=== PATIENT | female | born 1970 | race Caucasian/White ===

== ENCOUNTER 2017-06-08 09:32 | Emergency (ER) | payer BC ==
--- NOTE | 2017-06-08 10:36 | EDM.PDOC ---
ED HPI GENERAL MEDICAL PROBLEM - General Chief Complaint: Cardiovascular Problem Stated Complaint: HEART RACING FLUSHED Time Seen by Provider: 06/08/17 10:20 Source of Information: Reports: Patient, RN Notes Reviewed History Limitations: Reports: No Limitations - History of Present Illness INITIAL COMMENTS - FREE TEXT/NARRATIVE: The patient states that she developed symptoms of sudden onset heart racing, dizziness, flushing, and tingling of the right side of her face, around 10:00 this morning. The heart racing symptoms resolved around the time she got to the ED, with a total duration of about 20 minutes. The patient states that she still has the dizziness sensation, and the flushing sensation is limited to the back of her head. She still has tingling to the right side of her face. The patient states that she has a history of factor V Leiden, and was previously treated with Coumadin, but self discontinued it about 5 years ago because she did not like how it made her skin thin. The patient does not have a PCP. Headache Pain Score (Numeric/FACES): 5 - Related Data Allergies Allergy/AdvReac Type Severity Reaction Status Date / Time lidocaine Allergy Airway Verified 06/08/17 09:38 Tightness Penicillins Allergy Other Verified 06/08/17 09:38 procaine [From Novocain] Allergy Airway Verified 06/08/17 09:38 Tightness Home Meds: Home Meds . 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: Hematologic History: Reports: Other (See Below) (Factor V Leiden) Immunologic History: Reports: SLE - Past Surgical History HEENT Surgical History: Reports: Oral Surgery ([place] teeth extraction) Female Surgical History: Reports: Tubal Ligation Neurological Surgical History: Reports: Intracranial (Meningioma excised from right brain 2001) Dermatological Surgical History: Reports: Other (See Below) (Lipomas excised off back) Social & Family History - Tobacco Use Smoking Status *Q: Current Every Day Smoker Years of Tobacco use: 36 Packs/Tins Daily: 1 - Caffeine Use Caffeine Use: Reports: Coffee - Alcohol Use Alcohol Use History: No - Recreational Drug Use Recreational Drug Use: No - Living Situation & Occupation Living situation: Reports: Single, Alone 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[employer]) ED ROS GENERAL - Review of Systems Review Of Systems: See Below Constitutional: Reports: No Symptoms HEENT: Reports: No Symptoms Respiratory: Reports: No Symptoms Cardiovascular: Reports: No Symptoms Endocrine: Reports: No Symptoms GI/Abdominal: Reports: No Symptoms : Reports: No Symptoms Musculoskeletal: Reports: No Symptoms Skin: Reports: No Symptoms Neurological: Reports: No Symptoms Psychiatric: Reports: No Symptoms Hematologic/Lymphatic: Reports: No Symptoms Immunologic: Reports: No Symptoms ED EXAM, GENERAL - Physical Exam Exam: See Below Exam Limited By: No Limitations General Appearance: Alert, WD/WN, No Apparent Distress Eye Exam: Bilateral Eye: EOMI, Normal Inspection, PERRL Ears: Normal External Exam, Hearing Grossly Normal Nose: Normal Inspection, No Blood Throat/Mouth: Normal Inspection, Normal Lips, Normal Voice, No Airway Compromise Head: Atraumatic, Normocephalic Neck: Normal Inspection, Full Range of Motion Respiratory/Chest: No Respiratory Distress, Lungs Clear, Normal Breath Sounds, No Accessory Muscle Use Cardiovascular: Normal Peripheral Pulses, Regular Rate, Rhythm, No Gallop, No JVD, No Murmur, No Rub Peripheral Pulses: 4+: Radial (L), Radial (R) GI/Abdominal: Normal Bowel Sounds, Soft, Non-Tender, No Organomegaly, No Distention, No Abnormal Bruit, No Mass (Female) Exam: Deferred Rectal (Female) Exam: Deferred Back Exam: Normal Inspection, Full Range of Motion, NT Extremities: Normal Inspection, Normal Range of Motion, No Pedal Edema, Normal Capillary Refill Neurological: Alert, Oriented, Normal Cognition, No Motor/Sensory Deficits, Other (The patient reports decreased sensation to palpation of the right side of her face in the V2 and V 3 distribution) Psychiatric: Normal Affect Skin Exam: Warm, Dry, Intact, Normal Color, No Rash Lymphatic: No Adenopathy EKG INTERPRETATION EKG Date: 06/08/17 Time: 10:27 Rhythm: NSR Rate (Beats/Min): 72 [place]: Normal P-Wave: Present QRS: Normal ST-T: Normal QT: Normal Comparison: NA - No Prior EKG Course - Vital Signs Last Recorded V/S: Last Vital Signs Temp 36.8 C 06/08/17 09:40 Pulse 70 06/08/17 14:08 Resp 13 06/08/17 14:08 BP 118/70 06/08/17 14:08 Pulse Ox 99 06/08/17 14:08 Orthostatic Blood Pressure [ 120/89 Standing] Orthostatic Blood Pressure [ 111/87 Sitting] Orthostatic Blood Pressure [ 113/74 Supine] - Orders/Labs/Meds Orders: Active Orders 24 hr Category Date Time Status EKG 12 Lead [EKG Documentation Completion] [RC] URGENT Care 06/08/17 10:20 Active Orthostatic Vital Signs [RC] STAT Care 06/08/17 10:37 Active Ang Chest [CT] Stat Exams 06/08/17 11:51 Taken Labs: Laboratory Tests 06/08/17 06/08/17 06/08/17 Range/Units 10:36 10:50 10:50 WBC (3.98-10.04) K/mm3 RBC (3.98-5.22) M/mm3 Hgb (11.2-15.7) gm/L Hct (34.1-44.9) % MCV (79.4-94.8) fl MCH (25.6-32.2) pg MCHC (32.2-35.5) g/dl RDW Std Deviation (36.4-46.3) fL Plt Count (182-369) K/mm3 MPV (9.4-12.3) fl Neutrophils % (Manual) (40-60) % Band Neutrophils % (0-10) % Lymphocytes % (Manual) (20-40) % Atypical Lymphs % % Monocytes % (Manual) (2-10) % Eosinophils % (Manual) (0.7-5.8) % Basophils % (Manual) (0.1-1.2) Platelet Estimate RBC Morph Comment ESR (0-20) mm/hr PT (8.0-13.0) SECONDS INR APTT (22-36) SECONDS D-Dimer, Quantitative (0.19-0.59) mg/L Puncture Site Rt radial ABG pH 7.38 (7.35-7.45) ABG pCO2 44.3 (35.0-45.0) mmHg ABG pO2 65.0 L (80.0-100.0) mmHg ABG HCO3 25.7 (22.0-26.0) meq/L ABG O2 Saturation 94.4 L (96.0-97.0) % ABG Base Excess 0.9 (-2-2.0) Efrain Test Positive O2 Delivery Device Room air Sodium (136-145) mEq/L Potassium (3.5-5.1) mEq/L Chloride (98-107) mEq/L Carbon Dioxide (21-32) mEq/L Anion Gap (5-15) BUN (7-18) mg/dL Creatinine (0.55-1.02) mg/dL Est Cr Clr Drug Dosing mL/min Estimated GFR (MDRD) (>60) mL/min BUN/Creatinine Ratio (14-18) Glucose (74-106) mg/dL Calcium (8.5-10.1) mg/dL Magnesium (1.8-2.4) mg/dl Total Bilirubin (0.2-1.0) mg/dL AST (15-37) U/L ALT (14-59) U/L Alkaline Phosphatase (46-116) U/L Troponin I (0.00-0.056) ng/mL C-Reactive Protein (<1.0) mg/dL Total Protein (6.4-8.2) g/dl Albumin (3.4-5.0) g/dl Globulin gm/dL Albumin/Globulin Ratio (1-2) TSH 3rd Generation (0.358-3.74) uIU/mL Urine Color Yellow (Yellow) Urine Appearance Clear (Clear) Urine pH 6.5 (5.0-8.0) Ur Specific [employer] 1.015 (1.005-1.030) Urine Protein Negative (Negative) Urine Glucose (UA) Negative (Negative) Urine Ketones Negative (Negative) Urine Occult Blood Negative (Negative) Urine Nitrite Negative (Negative) Urine Bilirubin Negative (Negative) Urine Urobilinogen 0.2 (0.2-1.0) Ur Leukocyte Esterase Negative (Negative) Urine RBC 0-5 (0-5) /hpf Urine WBC 0-5 (0-5) /hpf Ur Epithelial Cells 0-5 (0-5) /hpf Urine Bacteria Few (FEW) /hpf Urine Mucus Few (FEW) /hpf Urine Opiates Screen Negative (NEGATIVE) Ur Buprenorphine Scrn Negative (NEGATIVE) Ur Oxycodone Screen Negative (NEGATIVE) Urine Methadone Screen Negative (NEGATIVE) Ur Propoxyphene Screen Negative (NEGATIVE) Ur Barbiturates Screen Negative (NEGATIVE) Ur Tricyclics Screen Negative (NEGATIVE) Ur Phencyclidine Scrn Negative (NEGATIVE) Ur Amphetamine Screen Negative (NEGATIVE) U Methamphetamines Scrn Negative (NEGATIVE) U Benzodiazepines Scrn Negative (NEGATIVE) U Cocaine Metab Screen Negative (NEGATIVE) U Marijuana (THC) Screen Negative (NEGATIVE) Ethyl Alcohol (0.00) gm% 06/08/17 06/08/17 06/08/17 Range/Units 11:00 11:00 11:00 WBC 5.91 (3.98-10.04) K/mm3 RBC 4.30 (3.98-5.22) M/mm3 Hgb 13.7 (11.2-15.7) gm/L Hct 42.5 (34.1-44.9) % MCV 98.8 H (79.4-94.8) fl MCH 31.9 (25.6-32.2) pg MCHC 32.2 (32.2-35.5) g/dl RDW Std Deviation 44.0 (36.4-46.3) fL Plt Count 221 (182-369) K/mm3 MPV 9.6 (9.4-12.3) fl Neutrophils % (Manual) 48 (40-60) % Band Neutrophils % 1 (0-10) % Lymphocytes % (Manual) 38 (20-40) % Atypical Lymphs % 0 % Monocytes % (Manual) 7 (2-10) % Eosinophils % (Manual) 7 H (0.7-5.8) % Basophils % (Manual) 0 L (0.1-1.2) Platelet Estimate Adequate RBC Morph Comment Not Reportable ESR (0-20) mm/hr PT (8.0-13.0) SECONDS INR APTT (22-36) SECONDS D-Dimer, Quantitative 1.77 H (0.19-0.59) mg/L Puncture Site ABG pH (7.35-7.45) ABG pCO2 (35.0-45.0) mmHg ABG pO2 (80.0-100.0) mmHg ABG HCO3 (22.0-26.0) meq/L ABG O2 Saturation (96.0-97.0) % ABG Base Excess (-2-2.0) Efrain Test O2 Delivery Device Sodium 141 (136-145) mEq/L Potassium 4.0 (3.5-5.1) mEq/L Chloride 105 (98-107) mEq/L Carbon Dioxide 30 (21-32) mEq/L Anion Gap 10.0 (5-15) BUN 11 (7-18) mg/dL Creatinine 0.8 (0.55-1.02) mg/dL Est Cr Clr Drug Dosing 70.36 mL/min Estimated GFR (MDRD) > 60 (>60) mL/min BUN/Creatinine Ratio 13.8 L (14-18) Glucose 91 (74-106) mg/dL Calcium 9.2 (8.5-10.1) mg/dL Magnesium 2.1 (1.8-2.4) mg/dl Total Bilirubin 0.6 (0.2-1.0) mg/dL AST 17 (15-37) U/L ALT 20 (14-59) U/L Alkaline Phosphatase 131 H (46-116) U/L Troponin I < 0.017 (0.00-0.056) ng/mL C-Reactive Protein 0.8 (<1.0) mg/dL Total Protein 7.4 (6.4-8.2) g/dl Albumin 4.0 (3.4-5.0) g/dl Globulin 3.4 gm/dL Albumin/Globulin Ratio 1.2 (1-2) TSH 3rd Generation 2.185 (0.358-3.74) uIU/mL Urine Color (Yellow) Urine Appearance (Clear) Urine pH (5.0-8.0) Ur Specific [employer] (1.005-1.030) Urine Protein (Negative) Urine Glucose (UA) (Negative) Urine Ketones (Negative) Urine Occult Blood (Negative) Urine Nitrite (Negative) Urine Bilirubin (Negative) Urine Urobilinogen (0.2-1.0) Ur Leukocyte Esterase (Negative) Urine RBC (0-5) /hpf Urine WBC (0-5) /hpf Ur Epithelial Cells (0-5) /hpf Urine Bacteria (FEW) /hpf Urine Mucus (FEW) /hpf Urine Opiates Screen (NEGATIVE) Ur Buprenorphine Scrn (NEGATIVE) Ur Oxycodone Screen (NEGATIVE) Urine Methadone Screen (NEGATIVE) Ur Propoxyphene Screen (NEGATIVE) Ur Barbiturates Screen (NEGATIVE) Ur Tricyclics Screen (NEGATIVE) Ur Phencyclidine Scrn (NEGATIVE) Ur Amphetamine Screen (NEGATIVE) U Methamphetamines Scrn (NEGATIVE) U Benzodiazepines Scrn (NEGATIVE) U Cocaine Metab Screen (NEGATIVE) U Marijuana (THC) Screen (NEGATIVE) Ethyl Alcohol 0.00 (0.00) gm% 06/08/17 06/08/17 Range/Units 11:00 11:00 WBC (3.98-10.04) K/mm3 RBC (3.98-5.22) M/mm3 Hgb (11.2-15.7) gm/L Hct (34.1-44.9) % MCV (79.4-94.8) fl MCH (25.6-32.2) pg MCHC (32.2-35.5) g/dl RDW Std Deviation (36.4-46.3) fL Plt Count (182-369) K/mm3 MPV (9.4-12.3) fl Neutrophils % (Manual) (40-60) % Band Neutrophils % (0-10) % Lymphocytes % (Manual) (20-40) % Atypical Lymphs % % Monocytes % (Manual) (2-10) % Eosinophils % (Manual) (0.7-5.8) % Basophils % (Manual) (0.1-1.2) Platelet Estimate RBC Morph Comment ESR 35 H (0-20) mm/hr PT 10.2 (8.0-13.0) SECONDS INR 0.94 APTT 28 (22-36) SECONDS D-Dimer, Quantitative (0.19-0.59) mg/L Puncture Site ABG pH (7.35-7.45) ABG pCO2 (35.0-45.0) mmHg ABG pO2 (80.0-100.0) mmHg ABG HCO3 (22.0-26.0) meq/L ABG O2 Saturation (96.0-97.0) % ABG Base Excess (-2-2.0) Efrain Test O2 Delivery Device Sodium (136-145) mEq/L Potassium (3.5-5.1) mEq/L Chloride (98-107) mEq/L Carbon Dioxide (21-32) mEq/L Anion Gap (5-15) BUN (7-18) mg/dL Creatinine (0.55-1.02) mg/dL Est Cr Clr Drug Dosing mL/min Estimated GFR (MDRD) (>60) mL/min BUN/Creatinine Ratio (14-18) Glucose (74-106) mg/dL Calcium (8.5-10.1) mg/dL Magnesium (1.8-2.4) mg/dl Total Bilirubin (0.2-1.0) mg/dL AST (15-37) U/L ALT (14-59) U/L Alkaline Phosphatase (46-116) U/L Troponin I (0.00-0.056) ng/mL C-Reactive Protein (<1.0) mg/dL Total Protein (6.4-8.2) g/dl Albumin (3.4-5.0) g/dl Globulin gm/dL Albumin/Globulin Ratio (1-2) TSH 3rd Generation (0.358-3.74) uIU/mL Urine Color (Yellow) Urine Appearance (Clear) Urine pH (5.0-8.0) Ur Specific [employer] (1.005-1.030) Urine Protein (Negative) Urine Glucose (UA) (Negative) Urine Ketones (Negative) Urine Occult Blood (Negative) Urine Nitrite (Negative) Urine Bilirubin (Negative) Urine Urobilinogen (0.2-1.0) Ur Leukocyte Esterase (Negative) Urine RBC (0-5) /hpf Urine WBC (0-5) /hpf Ur Epithelial Cells (0-5) /hpf Urine Bacteria (FEW) /hpf Urine Mucus (FEW) /hpf Urine Opiates Screen (NEGATIVE) Ur Buprenorphine Scrn (NEGATIVE) Ur Oxycodone Screen (NEGATIVE) Urine Methadone Screen (NEGATIVE) Ur Propoxyphene Screen (NEGATIVE) Ur Barbiturates Screen (NEGATIVE) Ur Tricyclics Screen (NEGATIVE) Ur Phencyclidine Scrn (NEGATIVE) Ur Amphetamine Screen (NEGATIVE) U Methamphetamines Scrn (NEGATIVE) U Benzodiazepines Scrn (NEGATIVE) U Cocaine Metab Screen (NEGATIVE) U Marijuana (THC) Screen (NEGATIVE) Ethyl Alcohol (0.00) gm% Meds: Medications Discontinued Medications Generic Name Dose Route Start Last Admin Trade Name Freq PRN Reason Stop Dose Admin Sodium Chloride 1,000 mls @ 150 mls/hr 06/08/17 12:00 06/08/17 12:48 Normal Saline IV 150 mls/hr ASDIRECTED ELIF Administration Sodium Chloride 100 mls @ 60 mls/hr 06/08/17 12:00 06/08/17 12:15 Normal Saline IV 60 mls/hr ASDIRECTED ELIF Administration Ibuprofen 600 mg 06/08/17 12:38 06/08/17 12:48 Motrin PO 06/08/17 12:39 600 mg ONETIME ONE Administration Iopamidol 100 ml 06/08/17 11:57 06/08/17 12:14 Isovue-370 (76%) IVPUSH 06/08/17 11:58 100 ml ONETIME ONE Administration Sodium Chloride 10 ml 06/08/17 11:57 06/08/17 12:15 Saline Flush FLUSH 06/08/17 11:58 10 ml ONETIME ONE Administration - Re-Assessments/Exams Free Text/Narrative Re-Assessment/Exam: 06/08/17 11:23 CT of the head without contrast is read by Dr. Torres as: 1. Right occipital craniotomy with evidence of adjacent encephalomalacia within the right cerebellar hemisphere. 2. No acute intracranial abnormality is identified. 06/08/17 11:52 The patient's D-dimer has returned substantially elevated at 1.77. I have ordered a CT angiogram to evaluate for a pulmonary embolus, along with normal saline IV fluid. 06/08/17 11:53 Two-view chest radiograph appears to be grossly normal. Cardiac silhouette is within normal limits. No pulmonary vascular congestion. No pleural effusions. No focal infiltrate. No pneumothorax. Formal read per the Radiologist pending. 06/08/17 13:01 The patient is not orthostatic. 06/08/17 13:51 CT angiogram of the chest is read by virtual radiology as: No pulmonary embolus. No acute abnormality is noted in the chest. Left adrenal nodule. 06/08/17 14:00 Test results discussed with the patient. Today's workup is unremarkable, and does not explain the cause of her palpitations, dizziness, flushing, or tingling on the right side of her face. That being said, she states that she is now feeling much better, and her symptoms have essentially resolved. Departure - Departure Time of Disposition: 14:01 Disposition: Home, Self-Care 01 Condition: Good Clinical Impression: Palpitations, Numbness and tingling of right face, Flushing, Lightheadedness Instructions: Palpitations, [id number] Referrals: PCP,None [Primary Care Provider] - Luly Martinez [Physician] - Forms: ED Department Discharge Additional Instructions: You were seen in the emergency room for sudden onset heart racing, lightheadedness, flushing, and tingling of the right side of your face. Workup in the ER included blood work, an ABG, a urinalysis, a urine drug screen , an ECG, a chest x-ray, a CT scan of your head, a CT angiogram of your chest, and positional blood pressure checks. Your entire workup was unremarkable. You do not have a blood clot in your chest. You do not have pneumonia. Your heart rate was found to be normal while here in the ER. You have not suffered a heart attack. It does not appear that you were hyperventilating. You are not intravascularly depleted. No evidence of vasculitis. Your thyroid level is normal. You have not had a stroke. Because your workup was normal, we are not able to say why you had the symptoms that you did. We recommend you follow-up with Dr. Martinez in the clinic at the next available appointment. You should be anticoagulated for your factor V Leiden condition. This is especially important as a smoker. If any other problems, please do not hesitate to return to the ER. - My Orders Last 24 Hours: My Active Orders 06/08/17 10:20 EKG 12 Lead [EKG Documentation Completion] [RC] URGENT 06/08/17 10:37 Orthostatic Vital Signs [RC] STAT 06/08/17 11:51 Ang Chest [CT] Stat - Assessment/Plan Last 24 Hours: My Active Orders 06/08/17 10:20 EKG 12 Lead [EKG Documentation Completion] [RC] URGENT 06/08/17 10:37 Orthostatic Vital Signs [RC] STAT 06/08/17 11:51 Ang Chest [CT] Stat
--- NOTE | 2017-06-08 11:10 | CT ---
Head CT Technique: Multiple axial sections through the brain were obtained. Intravenous contrast was not utilized. Comparison: No previous intracranial imaging. Findings: Ventricles along with basal cistern and sulci over convexities are within normal limits for the patient's age. Ventricular size is slightly asymmetric which is felt to be incidental. There is an area of encephalomalacia being seen within the posterior right cerebellar hemisphere with overlying craniotomy defect being noted. No other abnormal parenchymal densities are seen. No evidence of intracranial hemorrhage. No midline shift or mass effect is seen. Bone window settings were reviewed which shows the visualized sinuses to appear clear. No acute calvarial abnormality is seen. Impression: 1. Right occipital craniotomy with evidence of adjacent encephalomalacia within the right cerebellar hemisphere. 2. No acute intracranial abnormality is identified. Diagnostic code #2
[2017-06-08] MEDS ORDERED: Sodium Chloride 0.9% 10 ML Syringe FLUSH ONE (11:57)
[2017-06-08] MEDS ORDERED: Iopamidol 755 Mg/ML 100 ML Bottle IVPUSH ONE (11:57)
[2017-06-08] MEDS ORDERED: Sodium Chloride 0.9% 100 ML IV SCH (12:00)
[2017-06-08] MEDS ORDERED: Sodium Chloride 0.9% 1,000 ML IV SCH (12:00)
--- NOTE | 2017-06-08 12:07 | CR ---
Chest: Two views of the chest were obtained. Comparison: No previous study. Heart size and mediastinum are normal. Lungs are clear. Bony structures are unremarkable for the patient's age. Impression: 1. Nothing acute is appreciated on two-view chest x-ray. Diagnostic code #1
[2017-06-08] MEDS ORDERED: Ibuprofen 600 MG Tab PO ONE (12:38)
[2017-06-08 14:09] VITALS: BP 118/70
--- NOTE | 2017-06-09 06:55 | CT ---
CT chest Technique: Multiple axial sections through the chest were obtained. Intravenous contrast was utilized. Study has been performed as a pulmonary angiogram protocol. Comparison: Prior chest x-ray performed earlier on the same day, no previous chest CT is available. Findings: Pulmonary arteries are well-opacified. No filling defects are seen to indicate pulmonary embolism. Mediastinum and hilar regions show no adenopathy or mass. Both axillary regions show no adenopathy. No pericardial thickening is seen. Left adrenal nodule is identified measuring around 2.1 cm. This is not completely included on this exam. This does not have Hounsfield unit measurements to confirm a simple adenoma. Mild emphysematous change is seen within the right upper lung. Dependent atelectasis noted posteriorly within both lung bases as an incidental note. No pleural effusions are seen. Impression: 1. No findings of pulmonary embolism. 2. Nodule within the left adrenal gland. Repeat noncontrast CT recommended in 6 months to confirm stability. 3. Mild emphysematous change within the right upper lung. Diagnostic code #9 Agree with preliminary report issued by [facility] ([facility] preliminary report dictated on 06/08/17, 2:16 PM Central Time)
== END 2017-06-08 14:30 | disposition home or self-care (01) ==
LOC: JD.ED 09:32
DX: R00.2 Palpitations (principal); R20.0 Anesthesia of skin; R42 Dizziness and giddiness; R23.2 Flushing; F17.210 Nicotine dependence, cigarettes, uncomplicated; M32.9 Systemic lupus erythematosus, unspecified; Z98.51 Tubal ligation status; Z98.890 Other specified postprocedural states; Z88.0 Allergy status to penicillin; Z88.6 Allergy status to analgesic agent
CPT/HCPCS: 36415; 36600; 70450; 71020; 71275; 80053; 80306; 81001; 82803; 83735; 84443; 84484; 85025; 85379; 85610; 85652; 85730; 86140; 93005; 96360; 99285; A9270; G0480; J7030; J7040; J7050; Q9967; 99284

== ENCOUNTER 2017-08-11 16:29 | Emergency (ER) | payer BC, OTHER ==
[2017-08-11 16:36] VITALS: BP 137/85
[2017-08-11] MEDS ORDERED: Acetaminophen 325 MG Tab PO ONE (16:50)
--- NOTE | 2017-08-11 17:20 | EDM.PDOC ---
ED HPI GENERAL MEDICAL PROBLEM - General Chief Complaint: Upper Extremity Injury/Pain Stated Complaint: R WRIST INJURY Time Seen by Provider: 08/11/17 16:42 Source of Information: Reports: Patient, RN Notes Reviewed - History of Present Illness INITIAL COMMENTS - FREE TEXT/NARRATIVE: 47-year-old female slipped at work coming down on her right hand injuring her right wrist. She does have pain radial aspect of the right wrist. The pain is much worse with motion of the wrist and hand. No other pain or injury from this incident. She is right-handed. - Related Data Allergies Allergy/AdvReac Type Severity Reaction Status Date / Time lidocaine Allergy Airway Verified 08/11/17 16:34 Tightness Penicillins Allergy Other Verified 08/11/17 16:34 procaine [From Novocain] Allergy Airway Verified 08/11/17 16:34 Tightness Home Meds: Home Meds . 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 Endocrine/Metabolic History: Reports: Other (See Below) Other Endocrine/Metabolic History: lupus Hematologic History: Reports: Other (See Below) Other Hematologic History: Factor 5 disorder Immunologic History: Reports: SLE - Past Surgical History HEENT Surgical History: Reports: Oral Surgery Female Surgical History: Reports: Tubal Ligation Neurological Surgical History: Reports: Intracranial Dermatological Surgical History: Reports: Other (See Below) Social & Family History - Tobacco Use Smoking Status *Q: Current Every Day Smoker Years of Tobacco use: 20 Packs/Tins Daily: 1 - Caffeine Use Caffeine Use: Reports: Coffee - Recreational Drug Use Recreational Drug Use: No - Living Situation & Occupation Living situation: Reports: Single, Alone 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 No: Facial Swelling Neck: Supple, Full Range of Motion Respiratory/Chest: No Respiratory Distress, Lungs Clear, Normal Breath Sounds Cardiovascular: Regular Rate, Rhythm Extremities: Joint Swelling (Very minimal swelling right wrist and distal forearm), Limited Range of Motion (Secondary to pain right wrist), Other ( Moderate tenderness radial aspect of right wrist) Neurological: No Motor/Sensory Deficits Skin Exam: Warm, Dry, Normal Color Course - Vital Signs Last Recorded V/S: Last Vital Signs Temp 98.5 F 08/11/17 16:34 Pulse 82 08/11/17 16:34 Resp 18 08/11/17 16:34 BP 137/85 08/11/17 16:34 Pulse Ox 100 08/11/17 16:34 - Orders/Labs/Meds Orders: Active Orders 24 hr Category Date Time Status Wrist Comp Min 3V Rt [CR] Stat Exams 08/11/17 16:51 Taken Meds: Medications Discontinued Medications Generic Name Dose Route Start Last Admin Trade Name Soni PRN Reason Stop Dose Admin Acetaminophen 975 mg 08/11/17 16:50 08/11/17 16:56 Tylenol PO 08/11/17 16:51 975 mg NOW ONE Administration - Re-Assessments/Exams Free Text/Narrative Re-Assessment/Exam: 08/11/17 17:40 X-rays of wrist do not show visible fracture. There is one area of very slight concern on one view but I do feel that is a vascular groove. Departure - Departure Time of Disposition: 17:42 Disposition: Home, Self-Care 01 Condition: Fair Clinical Impression: Contusion of right wrist Qualifiers: Encounter type: initial encounter Qualified Code(s): S60.211A - Contusion of right wrist, initial encounter - Discharge Information Referrals: Luly Martinez [Primary Care Provider] - Forms: ED Department Discharge, ED Return to Work/School Form Additional Instructions: Velcro-type right wrist splint for comfort and support, ice packs and elevation as needed for swelling, may alternate Tylenol and ibuprofen as needed for discomfort. Rest hand and wrist is much as he can. He may return to work tomorrow but try limit your lifting with the right hand and wrist as best you can. Have rehecked if not getting back to normal within 7-10 days as expected - My Orders Last 24 Hours: My Active Orders 08/11/17 16:51 Wrist Comp Min 3V Rt [CR] Stat - Assessment/Plan Last 24 Hours: My Active Orders 08/11/17 16:51 Wrist Comp Min 3V Rt [CR] Stat
--- NOTE | 2017-08-12 08:06 | CR ---
Right wrist: Four views of the right wrist were obtained. Comparison: No prior wrist study. Joint spaces are maintained within the wrist. No fracture, dislocation or other bony abnormality is appreciated. Impression: 1. No abnormality is identified on four-view right wrist exam. Diagnostic code #1
== END 2017-08-11 17:55 | disposition home or self-care (01) ==
LOC: JD.ED 16:29
DX: S60.211A Contusion of right wrist, initial encounter (principal); F17.210 Nicotine dependence, cigarettes, uncomplicated; Z88.8 Allergy status to other drugs, medicaments and biological substances; Z88.0 Allergy status to penicillin; W18.40XA Slipping, tripping and stumbling without falling, unspecified, initial encounter; Y99.0 Civilian activity done for income or pay
CPT/HCPCS: 73110; 99283; A9270